=== PATIENT | male | born 2000 | race African-American/Black ===

== ENCOUNTER 2024-11-03 15:30 | Emergency (ER) | payer OTHER, SELFPAY ==
--- NOTE | 2024-11-03 15:33 | ED_ITS ---
HPI - Male Genitourinary General Chief complaint: Urogenital-Male Stated complaint: UTI SYMPTOMS/SORE IN MOUTH/SWOLLEN GLANDS Source: patient, RN notes reviewed and old records reviewed Mode of arrival: ambulatory Limitations: no limitations History of Present Illness HPI Narrative: 24-year-old male presents to the [facility] with concerns for an STD. Patient has a sore on the inner portion of the gum right lower. Also has to small sores to the shaft of his penis. Reports intermittent burning with urination, worse over the last couple of days, since Sunday, no pain with urination when in clinic. Patient reports urinary sister done started on , sore in the mouth started on Sunday Has had the same partner for 2 years Related Data Sexually active: Yes Home Medications ?Medication ?Instructions ?Recorded ?Confirmed ?Last Taken ?Type No Home Medications 11/03/24 11/03/24 Unknown History Allergies Allergy/AdvReac Type Severity Reaction Status Date / Time No Known Allergies Allergy Unverified 11/03/24 15:39 Review of Systems Review of Systems: All systems reviewed & are unremarkable except as noted in HPI and below Constitutional: Constitutional: Reports no additional constitutional complaints ENT: Reports as per HPI Cardiovascular: Cardiovascular: Reports no additional cardiovascular complaints, Denies chest pain and Denies dyspnea Respiratory: Respiratory: Reports no additional respiratory complaints, Denies chest congestion, Denies cough and Denies dyspnea Genitourinary: Genitourinary: Reports as per HPI Musculoskeletal: Musculoskeletal: Reports no additional musculoskeletal complaints Integumentary/Breasts: Skin/Breast: Reports system reviewed and no additional complaints, except as docu PMFSH Past Medical History Medical History Seasonal allergies Family History Family History Mother Hypertension Social History Social History Smoking status: Never smoker Alcohol intake: never Substance use: never Gender identity (if verbalized by the patient): Male Comments At the time of my signature, I reviewed and agree with the nursing past medical, surgical, social, and family history. There is no relevant family history pertinent to the patient complaint. Exam Const: General: cooperative, healthy appearing, comfortable, no acute distress, well developed, alert and well nourished Nutritional Appearance: well nourished Orientation/consciousness: patient oriented x3 Limitations: no limitations HENMT: Head: normal to inspection Ears: hearing grossly normal bilaterally, external ears normal, TM's normal bilaterally, EAC's normal, mastoids normal and no periauricular adenopathy Mouth: Yes lip normal, Yes tongue normal and Yes other (Be low molars inner aspect up this ulcer) Throat: posterior oropharynx normal, uvula midline and no uvular edema Eyes: General: appearance normal, both eyes and all related structures Alignment and Position: alignment normal Neck: Neck: normal visual inspection, full ROM, no lymphadenopathy and no meningeal signs Chest: Chest palpation & inspection: normal inspection of the chest Resp: Effort & Inspection: normal respiratory effort and able to speak in complete sentences Auscultation: clear to auscultation bilaterally, no crackles, no rales, no rhonchi and no wheezes Cardio: Rate: regular rate : General: Yes no CVA tenderness Other: 2 less then 0.5 cm scabbed areas 1 possi ble herpetic lesion, 2nd ingrown hair top proximal penis, and right proximal pain a Chaperoned by Alla RN Skin: General skin exam: normal color and no rashes or lesions noted Neuro: General: patient oriented x3, gait normal, moves all extremities and no meningeal signs Cognition (Neuro): normal cognition Speech: normal speech Gait exam (Neuro): Normal gait present Extrem: General: normal to inspection, full ROM, capillary refill normal and normal gait Psych: Appearance: grossly normal and well kempt Mental Status: mental status grossly normal Speech and movement: Normal speech and movement present and Clear speech present Affect: normal affect Attitude: cooperative Course Course Level of Care: Express Care Visit Vital Signs Vital signs: Vital Signs Temperature 98.4 F 11/03/24 15:38 Pulse Rate 90 11/03/24 15:38 Respiratory Rate 16 11/03/24 15:38 Blood Pressure 156/98 H 11/03/24 15:38 Pulse Oximetry 97 11/03/24 15:38 Oxygen Delivery Room Air 11/03/24 15:38 Temperature 98.4 F 11/03/24 15:38 Pulse Rate 90 11/03/24 15:38 Respiratory Rate 16 11/03/24 15:38 Blood Pressure 156/98 H 11/03/24 15:38 Pulse Oximetry 97 11/03/24 15:38 Oxygen Delivery Room Air 11/03/24 15:38 Reviewed MDM - Male Genitourinary MDM Narrative Medical decision making narrative: Patient sitting in exam room. Patient is nontoxic, vitals are stable except blood pressure mildly elevated. Encouraging patient to follow-up with primary care provider Patient with multiple symptoms that are currently improving. Discussed we will only test for chlamydia, gonorrhea or Trichomonas. The sore in his mouth appears to be an aphthous ulcer. Discussed salt water gargles and good oral hygiene Scabbed over areas, lesion on penis since , 4 days. Most likely herpetic lesion, encourage patient to follow-up for further test Patient appropriate for outpatient treatment with close follow-up Discharge instructions reviewed with patient, as well as provided in writing per nursing staff. The instructions also include specific and strict return/GO TO THE ER as well as f/u information. All questions have been answered, and the patient deny any further questions with discharge and discharge plan. Some parts of this dictation were generated by voice recognition software and may contain typographical and/or grammatical inaccuracies. Differential Diagnosis Differential diagnosis: Likely urinary tract infection, urethritis, epididymitis and genital herpes simplex Lab Data Labs: Lab Results 11/03/24 Range/Units 15:50 POC Urine Color Yellow POC Urine Clarity Clear POC Urine pH 5.5 POC Ur Specif [place] 1.030 POC Urine Protein Trace (Negative) POC Ur Glucose (UA) Negative (Negative) POC Urine Ketones Negative (Negative) POC Urine Blood Negative (Negative) POC Urine Nitrite Negative (Negative) POC Urine Bilirubin 1+ (Negative) POC Urine Urobilinogen 0.2 POC U Leukocyte Esteras Negative (Negative) C. trachomatis (PCR) Pending N. gonorrhoeae (PCR) Pending T. vaginalis (PCR) Pending Reviewed Critical Care Time Critical Care Time Critical Care Time: No Discharge Plan Discharge Clinical Impression: Aphthous ulcer of mouth, Lesion of penis, Concern about STD in male without diagnosis Patient Disposition: Home Condition: Stable Instructions: Antibiotic Form, Sexually Transmitted Diseases (ED), Safe Sex Practices (ED) Additional Instructions: You have been tested for chlamydia, gonorrhea and Trichomonas. Results can take up to 48 hours to return. If they are positive you will be notified. If you are positive it is highly recommended that you follow-up with either with your primary care provider or an STD Clinic for further evaluation, testing and treatment. A list of STD clinics has been given to you Follow-up with a dental provider if the sores in her mouth are not improving Using good oral hygiene and salt water gargles can help Today your blood pressure was 156/98. Please follow-up with your primary care provider for further evaluation, testing and treatment Patient Language: Persian Prescriptions: No Action No Home Medications Follow-up/Referrals: Terry Metcalf MD [Primary Care Provider] - Stand Alone Forms: Work/School Release IP Time of Disposition: 16:00
[2024-11-03 15:38] VITALS: BP 156/98; PULSE 90; RESP 16; TEMP 36.9; O2SAT 97
[2024-11-03 16:04] LABS: EDUAAPPEAR Clear; EDUABILI 1+ (Negative); EDUABLOOD Negative (Negative); EDUACOLOR1 Yellow; EDUAGLUCOSE Negative (Negative); EDUAKETONE Negative (Negative); EDUALEUKO Negative (Negative); EDUANITRATE Negative (Negative); EDUAPH 5.5; EDUAPROTEIN Trace (Negative); EDUAUROBILI 0.2
[2024-11-03 21:39] LABS: Trichomonas Vag PCR NOT DETECTED (NOT DETECTE)
[2024-11-03 22:01] LABS: Chlamydia trachomatis NOT DETECTED (NOT DETECTE); Neisseria gonorrhoeae PCR NOT DETECTED (NOT DETECTE)
== END 2024-11-03 16:03 | disposition home or self-care (01) ==
PROVIDERS: Emergency Provider Nurse Practitioner; PCP Family Medicine
DX: K12.0 Recurrent oral aphthae (principal); N48.89 Other specified disorders of penis; Z11.3 Encounter for screening for infections with a predominantly sexual mode of transmission
CPT/HCPCS: 81003; 87491; 87591; 87661; 99213; G0463